=== PATIENT | male | born 1990 | race African-American/Black ===

== ENCOUNTER 2022-01-13 03:57 | Day surgery (SDC) | payer OTHER ==
[2022-01-10 16:12] VITALS: BMI 27.7
[2022-01-13] MEDS ORDERED: BACITRACIN 15 GM TUBE TOPICAL OINTMENT ONE (12:32)
[2022-01-13] MEDS ORDERED: PROPOFOL 20 ML ONE (13:28)
[2022-01-13] MEDS ORDERED: ceFAZolin SODIUM 1 GM VIAL ONE (13:28)
[2022-01-13] MEDS ORDERED: DEXAMETHASONE SOD PHOSPHATE 4 MG/1 ML VIAL ONE (13:28)
[2022-01-13] MEDS ORDERED: MIDAZOLAM HCL 2 MG/2 ML SINGLE DOSE VIAL ONE (13:28)
[2022-01-13] MEDS ORDERED: ONDANSETRON 4 MG/2 ML VIAL ONE (13:28)
[2022-01-13] MEDS ORDERED: KETOROLAC TROMETHAMINE 30 MG/1 ML VIAL ONE (13:28)
[2022-01-13] MEDS ORDERED: BUPIVACAINE HCL/PF 0.5% (5MG/ML) 10 ML VIAL ONE (13:36)
[2022-01-13] MEDS ORDERED: LIDOCAINE HCL 1%, 10 MG/ML (20ML VIAL) ONE (13:36)
[2022-01-13] MEDS ORDERED: oxyCODONE HCL 5 MG TABLET PO PRN ×2 (13:43)
[2022-01-13] MEDS ORDERED: ONDANSETRON 4 MG/2 ML VIAL IVPUSH PRN (13:43)
[2022-01-13] MEDS ORDERED: LACTATED RINGERS SOLUTION 1,000 ML IV SCH (13:45)
[2022-01-13] MEDS ORDERED: ceFAZolin SODIUM 1 GM VIAL IVPB ONE (13:50)
[2022-01-13] MEDS ORDERED: LIDOCAINE HCL 1%, 10 MG/ML (20ML VIAL) INF ONE (14:02)
[2022-01-13 16:43] VITALS: RESP 16
[2022-01-13 16:55] VITALS: BP 110/60; PULSE 50; TEMP 97.6
== END 2022-01-13 16:45 | disposition home or self-care (01) ==
LOC: JASU-SURG 03:57
PROVIDERS: ATTEND Urology
PROC: 0VNT0ZZ Release Prepuce, Open Approach (ICD-10-PCS; principal; 2022-01-13 13:30)
PROC: 0VTTXZZ Resection of Prepuce, External Approach (ICD-10-PCS; 2022-01-13 13:30)
DX: N47.1 Phimosis (principal); N48.1 Balanitis; T19.4 Foreign body in penis; X58.XXXD Exposure to other specified factors, subsequent encounter
CPT/HCPCS: 88300-TC; 88304-TC; 94760